=== PATIENT | female | born 1945 | race Caucasian/White ===

== ENCOUNTER 2016-04-21 15:53 | Outpatient (CLI) | payer MEDICARE, OTHER ==
[2016-04-21 16:24] LABS: #Basophils 0.1 thou/uL (0.0-0.2); #Eosinphils 0.2 thou/uL (0.0-0.7); #Monocytes 0.6 thou/uL (0.11-0.59); #Neutrophils 4.7 thou/uL (1.40-6.50); %Eosinophils 1.9 % (0.0-10.0); %Monocytes 6.5 % (0.0-10.0); Hematocrit 47.6 % (36.0-47.0); Mean Platelet Volume 8.4 fL (7.4-10.4); Red Blood Cell (RBC) Count 4.75 mill/uL (4.20-5.40); White Blood Cell (WBC) Count 8.5 thou/uL (4.8-10.8)
[2016-04-21 16:36] LABS: Anion Gap 17 mmol/L (10-20); BUN (Urea Nitrogen) 20 mg/dL (9.8-20.1); Calc. Creatinine Clearance 0 mL/min (70-130); Calcium 10.5 mg/dL (7.8-10.44); Carbon Dioxide 26 mmol/L (23-31); Chloride 106 mmol/L (98-107); Estimated GFR-MDRD 50
== END 2016-04-21 15:54 | disposition home or self-care (01) ==
LOC: HPCALD 15:53
PROVIDERS: ATTEND Family Medicine
DX: R06.2 Wheezing (principal)
CPT/HCPCS: 36415; 80048; 83880; 84443; 85025

== ENCOUNTER 2016-04-21 16:09 | Outpatient (CLI) | payer MEDICARE, OTHER ==
--- NOTE | 2016-04-21 18:27 | RAD ---
CHEST TWO VIEWS: Date: 04-21-16 Comparison: 10-24-13 FINDINGS: Mild cardiomegaly is about the same as before. The lungs seem fully inflated and clear. Arterioscl erotic change is seen in the aorta. The trachea is midline. No gross spinal fractures are seen. D egenerative changes are present in the spine. IMPRESSION: Cardiomegaly and arteriosclerosis, but minimal change since 2013. POS: HOME
--- NOTE | 2016-04-21 18:28 | RAD ---
LEFT HIP TWO VIEWS: Date: 04-21-16 FINDINGS: Some minor degenerative changes are seen in the hip consisting of small osteophytes, but the hip prasanth nt space is not very narrow. No fracture was seen. The adjacent pubic ring appears intact. IMPRESSION: No acute findings. POS: HOME
== END 2016-04-21 16:10 | disposition home or self-care (01) ==
LOC: BURRAD 16:09
PROVIDERS: ATTEND Family Medicine
DX: M25.552 Pain in left hip (principal); R26.9 Unspecified abnormalities of gait and mobility
CPT/HCPCS: 36415; 71020; 80048; 83880; 84443; 85025

== ENCOUNTER 2016-05-20 10:42 | Outpatient (CLI) | payer MEDICARE, OTHER ==
[2016-05-20 11:23] LABS: Methadone Not Detected (NotDetected); Methamphetamine Not Detected (NotDetected)
== END 2016-05-20 10:43 | disposition home or self-care (01) ==
LOC: HPCALD 10:42
PROVIDERS: ATTEND Family Medicine
DX: Z51.81 Encounter for therapeutic drug level monitoring (principal)
CPT/HCPCS: 80306

== ENCOUNTER 2016-10-20 23:00 | Emergency (ER) | payer MEDICARE, OTHER ==
[2016-10-20 23:38] LABS: #Basophils 0.1 thou/uL (0.0-0.2); #Eosinphils 0.2 thou/uL (0.0-0.7); #Lymphocytes 2.5 thou/uL (1.20-3.40); #Monocytes 0.7 thou/uL (0.11-0.59); #Neutrophils 6.8 thou/uL (1.40-6.50); %Basophils 0.9 % (0.0-1.0); %Eosinophils 1.9 % (0.0-10.0); %Monocytes 6.5 % (0.0-10.0); %Neutrophils 66.7 % (42.0-75.0); Hemoglobin 14.6 g/dL (12.0-16.0); Mean Corpuscular HGB CONC 34.2 g/dL (32.0-36.0); Mean Corpuscular Volume 96.4 fl (81.0-99.0); Mean Platelet Volume 8.7 fL (7.4-10.4); Platelet Count 193 thou/uL (130-400); Red Blood Cell (RBC) Count 4.42 mill/uL (4.20-5.40); White Blood Cell (WBC) Count 10.2 thou/uL (4.8-10.8)
[2016-10-20 23:43] LABS: INR-International Normal Ratio 2.5; PTT 36.9 SEC (22.9-36.1); Prothrombin Time 27.6 SEC (12.0-14.7)
[2016-10-21 00:03] LABS: ALT (SGPT) 25 U/L (8-55); AST (SGOT) 27 U/L (5-34); Albumin 3.9 g/dL (3.4-4.8); Alkaline Phosphatase 47 U/L (40-150); Anion Gap 16 mmol/L (10-20); BUN (Urea Nitrogen) 23 mg/dL (9.8-20.1); Bilirubin, Total 0.5 mg/dL (0.2-1.2); Calc. Creatinine Clearance 0 mL/min (70-130); Calcium 9.6 mg/dL (7.8-10.44); Carbon Dioxide 24 mmol/L (23-31); Chloride 107 mmol/L (98-107); Estimated GFR-MDRD 49; Glucose 111 mg/dL (83-110); Potassium 4.2 mmol/L (3.5-5.1); Protein, Total 6.9 g/dL (6.0-8.3); Sodium 143 mmol/L (136-145)
[2016-10-21] MEDS ORDERED: HYDROcodone/Acetaminophen 10/325 mg Tablet ONE (00:16)
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
--- NOTE | 2016-10-21 08:19 | RAD ---
LEFT KNEE 4 VIEWS: Date: 10/21/16 Moderately severe osteoarthritis is present consisting of joint space narrowing and osteophytes. No fracture or joint effusion seen. The bones all appear intact. IMPRESSION: Arthritis, but no acute findings. POS: HOME
--- NOTE | 2016-10-21 08:24 | RAD ---
RIGHT HUMERUS 2 VIEWS: Date: 10/20/16 Some bony densities along the lateral aspect of the radial head are thought to be chronic instead of acute. While the lateral view is not optimal, there is no suggestion of joint effusion to make me t hink that this is an acute issue. If pain is present here, then dedicated elbow films could be neede d. IMPRESSION: Humerus intact. Radial head changes most likely old. POS: HOME
== END 2016-10-21 00:53 | disposition home or self-care (01) ==
LOC: BURERS 23:00
DX: S80.02XA Contusion of left knee, initial encounter (principal); S40.021A Contusion of right upper arm, initial encounter; S20.229A Contusion of unspecified back wall of thorax, initial encounter; I48.91 Unspecified atrial fibrillation; I10 Essential (primary) hypertension; E66.9 Obesity, unspecified; J44.9 Chronic obstructive pulmonary disease, unspecified; Z79.899 Other long term (current) drug therapy; W18.30XA Fall on same level, unspecified, initial encounter
CPT/HCPCS: 70450; 71250; 72125; 74177; 80053; 85025; 85610; 85730; 96374; J2270

== ENCOUNTER 2017-01-17 14:52 | Emergency (ER) | payer MEDICARE, OTHER ==
[2017-01-17 15:26] LABS: #Basophils 0.1 thou/uL (0.0-0.2); #Eosinphils 0.1 thou/uL (0.0-0.7); #Lymphocytes 2.4 thou/uL (1.20-3.40); #Monocytes 0.3 thou/uL (0.11-0.59); %Basophils 0.9 % (0.0-1.0); %Eosinophils 1.5 % (0.0-10.0); %Lymphocytes 26.8 % (21.0-51.0); %Monocytes 3.7 % (0.0-10.0); %Neutrophils 67.1 % (42.0-75.0); Mean Corpuscular HGB CONC 32.7 g/dL (32.0-36.0); Mean Corpuscular Hemoglobin 32.4 pg (27.0-31.0); Mean Platelet Volume 8.2 fL (7.4-10.4); Platelet Count 220 thou/uL (130-400); RBC Distribution Width 13.5 % (11.5-14.5); Red Blood Cell (RBC) Count 4.62 mill/uL (4.20-5.40)
[2017-01-17 15:33] LABS: INR-International Normal Ratio 1.7; Prothrombin Time 20.7 SEC (12.0-14.7)
[2017-01-17] MEDS ORDERED: Ondansetron ODT 4 MG TAB ONE (15:41)
[2017-01-17] MEDS ORDERED: HYDROcodone/Acetaminophen 10/325 mg Tablet ONE (15:41)
[2017-01-17 15:42] LABS: ALT (SGPT) 18 U/L (8-55); AST (SGOT) 19 U/L (5-34); Albumin 4.2 g/dL (3.4-4.8); Alkaline Phosphatase 54 U/L (40-150); Anion Gap 16 mmol/L (10-20); BUN (Urea Nitrogen) 20 mg/dL (9.8-20.1); Bilirubin, Total 0.8 mg/dL (0.2-1.2); Calc. Creatinine Clearance 0 mL/min (70-130); Calcium 9.7 mg/dL (7.8-10.44); Carbon Dioxide 24 mmol/L (23-31); Chloride 107 mmol/L (98-107); Estimated GFR-MDRD 44; Globulin 3.2 g/dL (2.4-3.5); Glucose 103 mg/dL (83-110); Potassium 4.1 mmol/L (3.5-5.1); Protein, Total 7.4 g/dL (6.0-8.3); Sodium 143 mmol/L (136-145)
[2017-01-17 15:44] LABS: CKMB 1.3 ng/mL (0-6.6); Troponin I Less than 0.010 ng/mL (< 0.028)
[2017-01-17] MEDS ORDERED: Morphine Sulfate 2 MG/ML SYRINGE ONE (16:34)
--- NOTE | 2017-01-17 23:26 | RAD ---
LEFT HIP TWO VIEWS: 01/17/2017 COMPARISON: 04/21/2016 FINDINGS: No fracture or area of bony destruction is seen. The hip joint space is normal in width. The artic ular surface of the femoral head is smooth. There are no significant arthritic changes for age. IMPRESSION: No acute findings. No change since earlier this year. POS: HOME
== END 2017-01-17 16:39 | disposition short-term general hospital (02) ==
LOC: BURERS 14:52
DX: M79.652 Pain in left thigh (principal); I48.91 Unspecified atrial fibrillation; M10.9 Gout, unspecified; G47.30 Sleep apnea, unspecified; E78.5 Hyperlipidemia, unspecified; I10 Essential (primary) hypertension; E66.9 Obesity, unspecified; J44.9 Chronic obstructive pulmonary disease, unspecified; Z86.711 Personal history of pulmonary embolism; Z79.01 Long term (current) use of anticoagulants; Z79.899 Other long term (current) drug therapy
CPT/HCPCS: 80053; 82553; 84484; 85025; 85610; 93005; 96374; J2270; Q0162

== ENCOUNTER 2017-01-20 16:45 | Outpatient (CLI) | payer MEDICARE, MEDICAID ==
--- NOTE | 2017-01-20 22:30 | RAD ---
LEFT KNEE FOUR VIEWS: 01/20/17 Comparison is made with a 10/21/16 study. The findings are similar in that there is some mild joint space narrowing with some cartilaginous ca lcifications apparent in the joint. On at least one of the views, I would wonder if there is some lo ose bodies in the joint. MRI would be more accurate at showing this. There are no joint effusions. N o fracture was seen. IMPRESSION: Degenerative changes with cartilaginous calcifications. There might be a few loose bodies as well, s een better today than before. POS: HOME
== END 2017-01-20 16:46 | disposition home or self-care (01) ==
LOC: BURRAD 16:45
PROVIDERS: ATTEND Family Medicine
DX: M25.562 Pain in left knee (principal)

== ENCOUNTER 2017-03-17 13:39 | Inpatient (IN) | payer MEDICARE, OTHER ==
[2017-03-17] MEDS ORDERED: Ondansetron HCl/PF 4 MG/2 ML Vial ONE ×2 (13:46→14:15)
[2017-03-17] MEDS ORDERED: Famotidine In NaCl 20 mg/50 ml Premix Bag ONE (13:48)
[2017-03-17] MEDS ORDERED: cefTRIAXone\\ROCEPHIN 2 GM VIAL ONE (14:06)
[2017-03-17] MEDS ORDERED: Fentanyl 100 MCG/2 ML VIAL ONE ×2 (14:09→17:37)
[2017-03-17 14:11] LABS: #Basophils 0.1 thou/uL (0.0-0.2); #Lymphocytes 2.2 thou/uL (1.20-3.40); #Monocytes 0.3 thou/uL (0.11-0.59); #Neutrophils 15.5 thou/uL (1.40-6.50); %Basophils 0.5 % (0.0-1.0); %Eosinophils 0.2 % (0.0-10.0); %Monocytes 1.5 % (0.0-10.0); %Neutrophils 85.7 % (42.0-75.0); Hemoglobin 14.4 g/dL (12.0-16.0); Mean Corpuscular HGB CONC 32.7 g/dL (32.0-36.0); Mean Corpuscular Hemoglobin 32.2 pg (27.0-31.0); Mean Corpuscular Volume 98.6 fl (81.0-99.0); Mean Platelet Volume 8.2 fL (7.4-10.4); Platelet Count 194 thou/uL (130-400); Red Blood Cell (RBC) Count 4.48 mill/uL (4.20-5.40); White Blood Cell (WBC) Count 18.1 thou/uL (4.8-10.8)
[2017-03-17 14:12] LABS: ALT (SGPT) 18 U/L (8-55); AST (SGOT) 20 U/L (5-34); Albumin 4.1 g/dL (3.4-4.8); Alkaline Phosphatase 51 U/L (40-150); Anion Gap 16 mmol/L (10-20); BUN (Urea Nitrogen) 21 mg/dL (9.8-20.1); Bilirubin, Total 0.8 mg/dL (0.2-1.2); Calc. Creatinine Clearance 0 mL/min (70-130); Calcium 9.9 mg/dL (7.8-10.44); Carbon Dioxide 22 mmol/L (23-31); Chloride 108 mmol/L (98-107); Estimated GFR-MDRD 46; Globulin 3.3 g/dL (2.4-3.5); Glucose 130 mg/dL (83-110); Lipase 15 U/L (8-78); Potassium 4.2 mmol/L (3.5-5.1); Protein, Total 7.4 g/dL (6.0-8.3); Sodium 142 mmol/L (136-145)
[2017-03-17 14:31] LABS: Bilirubin Negative (Negative); Blood, Urine Small (Negative); Clarity Cloudy (Clear); Glucose, Urine (Dipstick) Negative (Negative); Leukocyte Small (Negative); Nitrite Negative (Negative); Protein, Urine (Dipstick) Negative (Neg-Trace); Urobilinogen 0.2 mg/dL (0.2-1.0); pH, Urine 5.5 (5.0-9.0)
[2017-03-17 14:36] LABS: Squamous Epithelial 0-3 HPF (0-3); WBC/HPF 21-50 HPF (0-3)
[2017-03-17 14:37] LABS: Bacteria/HPF 2+ HPF (None Seen)
[2017-03-17] MEDS ORDERED: Ketorolac Tromethamine 30 MG/ML VIAL ONE (14:43)
[2017-03-17 16:19] VITALS: BMI 38.4
[2017-03-17] MEDS ORDERED: Fentanyl 100 MCG/2 ML VIAL SLOW IVP PRN ×2 (16:30)
[2017-03-17] MEDS ORDERED: Sodium Chloride 0.9% 10 ML ONE (17:40)
[2017-03-17] MEDS ORDERED: HYDROcodone/Acetaminophen 5/325 mg Tablet PO PRN (17:42)
[2017-03-17] MEDS ORDERED: Ondansetron ODT 4 MG TAB SL PRN (17:42)
[2017-03-17] MEDS ORDERED: Ondansetron HCl/PF 4 MG/2 ML Vial IVP PRN (17:42)
[2017-03-17] MEDS ORDERED: HYDROcodone/Acetaminophen 10/325 mg Tablet PO PRN (17:53)
[2017-03-17] MEDS ORDERED: PROVENTIL INHALER 6.7 G (200 INHALATIONS) INH PRN (17:53)
[2017-03-17] MEDS: Acetaminophen 325 MG TAB PO PRN (17:55)
[2017-03-17] MEDS ORDERED: Warfarin Sodium 2.5 MG TAB PO SCH (18:00)
[2017-03-17] MEDS ORDERED: Warfarin Sodium 5 MG TAB PO SCH (18:00)
[2017-03-17 18:43] LABS: INR-International Normal Ratio 2.6; Prothrombin Time 28.8 SEC (12.0-14.7)
[2017-03-17] MEDS: HYDROcodone/Acetaminophen 5/325 mg Tablet PO PRN (21:26)
[2017-03-17] MEDS: tiZANidine HCl 4 MG TAB PO PRN (21:27)
[2017-03-17] MEDS: Metoprolol Tartrate 25 MG TAB PO SCH (21:27)
[2017-03-17] MEDS: Simvastatin 40 MG TAB PO SCH (21:27)
[2017-03-17] MEDS: Famotidine 20 MG TAB PO SCH (21:28)
[2017-03-17] MEDS: Dextrose 5 %-0.45 % NaCl 1,000 ML IV SCH (22:35)
--- NOTE | 2017-03-17 23:08 | HP ---
CHIEF COMPLAINT: Lower abdominal pain and vomiting. HISTORY OF PRESENT ILLNESS: Mrs. Veloz is a 71-year-old female who reports acute onset of constipation this morning followed by urinary hesitancy followed by lower abdominal pain. Subsequently, she developed fever and worsening pain throughout the course of the day and presented for emergency room evaluation. She reports several episodes of vomiting progressing to dry heaves. Denies that this was bilious or bloody. She reports some dysuria this morning with pain radiating up to the bilateral flanks. No gross hematuria was noted. In the emergency room, the patient was febrile to greater than 101 with 18,000 white count and urinalysis suspicious for urinary tract infection. Therefore, we have admitted her for further treatment. PAST MEDICAL HISTORY: 1. Vitamin D deficiency. 2. Obstructive sleep apnea, controlled with CPAP. 3. History of deep venous thrombosis and pulmonary embolism on chronic anticoagulation. 4. B12 deficiency. 5. Gout. 6. Gastroesophageal reflux disease. 7. Cervical disk disease. 8. Hyperlipidemia. 9. Hypothyroidism. 10. Hypertension. 11. Allergic rhinitis. 12. Chronic low back pain. 13. Chronic lower extremity edema. 14. Venous insufficiency. 15. Frequent falls. 16. Chronic pain syndrome. 17. Depression with anxiety. 18. Aortic valve calcifications. 19. Osteoarthritis, bilateral knees. 20. History of lumbar compression fracture. 21. Hard of hearing. PAST SURGICAL HISTORY: 1. Hysterectomy. 2. Multiple surgeries to low back involving L4-L5. 3. Left hemithyroidectomy with isthmusectomy, 03/17/2003. 4. Parathyroidectomy. 5. Ovarian cyst. ALLERGIES: CIPRO, TETRACYCLINE, CONTRAST, XARELTO. MEDICATIONS: 1. Metoprolol 50 mg b.i.d. 2. Ranitidine 300 mg p.o. at bedtime. 3. Simvastatin 40 mg p.o. daily. 4. Levothyroxine 50 mcg p.o. daily. 5. Ondansetron HCL 8 mg 1 q.8 h. p.r.n. nausea. 6. Stool softener 240 mg 1 capsule as needed once a day. 7. Ibuprofen 800 mg 1 p.o. t.i.d. with food or milk as needed. 8. Tramadol/acetaminophen 37.5/325 one to two p.o. q.4 hours p.r.n. 9. Warfarin per [facility] for goal INR 2-3, 5 mg tablet as directed. 10. Potassium 10 mEq twice a day. 11. Allopurinol 300 mg half tablet daily. 12. Multivitamin 1 daily. 13. Albuterol HFA 2 puffs q.4 hours p.r.n. wheezing. 14. Furosemide 40 mg daily. 15. Mometasone 2 sprays each nostril daily. 16. Calcium plus D 600/200 one p.o. daily. 17. Vitamin D3 of 2000 units daily. 18. Cetirizine 10 mg p.o. daily. 19. Hydrocodone 10/325 one p.o. q.6 h. p.r.n. pain. 20. Tizanidine 4 mg p.o. at bedtime p.r.n. FAMILY HISTORY: Noncontributory. SOCIAL HISTORY: The patient is , but she and her ex- still live together. No smoking, alcohol, or illicit drug use. REVIEW OF SYSTEMS: General: Positive fever, positive chills, positive fatigue, positive weakness, positive chronic pain. HEENT: Chronic postnasal drip. Denies sore throat, ear pain, sneezing or itchy watery eyes. Respiratory: Denies cough, hemoptysis, shortness of breath, wheezing. Cardiovascular: Denies chest pain, palpitations, orthopnea, PND. Genitourinary: Positive hesitancy, positive dysuria. No gross hematuria. Positive for frequency. Lymphatic: Increased lower extremity edema today. History of venous insufficiency and DVTs. Hematologic: The patient is coagulated. She was supposed to have her INR checked today, so she does not know what it is currently. Denies bleeding. Gastrointestinal: Positive vomiting as per above. No diarrhea. Positive constipation. No melena or hematochezia. Neurologic: Denies focal weakness, slurred speech, vision changes. PHYSICAL EXAMINATION: VITAL SIGNS: Temperature 101.2, heart rate 111, respirations 20, O2 sat 95% on room air, blood pressure 130/60. GENERAL: Well-developed, obese female in no acute distress. Alert and oriented x3. HEENT: Normocephalic, atraumatic. Pupils equal, round, and reactive to light and accommodation. Extraocular muscles intact. Nares are patent without discharge. Tongue protrudes in the midline. OP is clear. NECK: Supple, without lymphadenopathy, thyromegaly, JVD or bruit. HEART: Slightly tachycardic, regular rhythm. Normal S1, S2. A 2/6 systolic ejection murmur best heard at right upper sternal border. No radiation. LUNGS: Clear to auscultation bilaterally. No crackles or wheezes. Good air entry. No increased work of breathing. ABDOMEN: Positive bowel sounds in all four quadrants. Soft, tenderness to palpation in the suprapubic and bilateral lower quadrant as well as bilateral CVA tenderness. EXTREMITIES: No cyanosis or clubbing. A 1 mm pitting edema pretibially to the knees. NEUROLOGICAL: Cranial nerves II-XII grossly intact. No focal deficits. LABORATORY DATA: White count 18.1 with 85.7% neutrophils, 12% lymphocytes, hemoglobin 14.4, hematocrit 44.1, platelets 194. Sodium 142, potassium 4.2, chloride 108, bicarb 22, BUN 21, creatinine 1.16, glucose 130, lactic acid 1.9, calcium 9.9, normal LFTs, lipase 15, Urinalysis significant for small blood, small leukocyte esterase, 7-10 RBCs, 21-50 WBC, 2+ bacteria, 0-3 squamous epithelial cells. Urine and blood cultures are pending. ASSESSMENT AND PLAN: 1. Pyelonephritis. The patient was given 2 grams Rocephin in the emergency department. We will continue this every 24 hours. We will follow up urine culture. We will hydrate and treat symptomatically for pain. We will follow blood cultures. We will repeat her CBC in the a.m. 2. Fever. We will rule out influenza due to season. 3. Chronic pain. The patient will be continued on her chronic regimen. 4. Hypertension. The patient's blood pressure will be monitored in house and will continue her medication. 5. Gastroesophageal reflux disease. The patient's home regimen will be continued. 6. Hyperlipidemia. The patient's home regimen will be continued and heart healthy diet. 7. Hypothyroidism. We will continue her levothyroxine. 8. Constipation. She will be continued on her stool softener. 9. Vomiting. We will give her antiemetics p.r.n. 10. History of deep venous thrombosis/pulmonary embolus. We will check PT/INR daily and adjust her warfarin accordingly. Goal INR between 2-3. 11. Gout. The patient will be continued on her allopurinol. 12. Lower extremity edema. The patient will be continued on her Lasix and potassium. 13. Allergic rhinitis. The patient will be continued on her home regimen. 14. Vitamin D deficiency. Patient will be continued on her vitamin D. 15. Vitamin B12 deficiency. Patient will be continued on her multivitamin. 16. Osteoarthritis/lumbar/cervical disk disease. The patient will be continued on her tizanidine at bedtime as well as her other chronic medications. 17. Prophylaxis. The patient is already on anticoagulation. We will follow anticoagulation protocol. Her ranitidine will be continued for stress ulcer prophylaxis. CODE STATUS: FULL CODE. MTDD
[2017-03-18] MEDS: Dextrose 5 %-0.45 % NaCl 1,000 ML IV SCH ×3 (05:03→14:05)
[2017-03-18] MEDS: HYDROcodone/Acetaminophen 5/325 mg Tablet PO PRN (05:04)
[2017-03-18 05:20] LABS: INR-International Normal Ratio 2.6; Prothrombin Time 29.2 SEC (12.0-14.7)
[2017-03-18 05:28] LABS: Anion Gap 12 mmol/L (10-20)
[2017-03-18 06:56] LABS: Band 15 % (5-11); Eosinophils 1 % (0-10); Hemoglobin 12.4 g/dL (12.0-16.0); Lymphocytes 8 % (21-51); MDiff Complete? YES; Mean Corpuscular HGB CONC 32.8 g/dL (32.0-36.0); Mean Corpuscular Hemoglobin 32.1 pg (27.0-31.0); Mean Corpuscular Volume 97.9 fl (81.0-99.0); Mean Platelet Volume 8.9 fL (7.4-10.4); Monocytes 5 % (0-10); Neutrophil 71 % (42-75); PLT Morphology Comment Appears Adequate; Platelet Count 148 thou/uL (130-400); RBC Distribution Width 13.7 % (11.5-14.5); RBC Morphology Normal; Red Blood Cell (RBC) Count 3.84 mill/uL (4.20-5.40); White Blood Cell (WBC) Count 21.7 thou/uL (4.8-10.8)
[2017-03-18 08:44] LABS: BUN (Urea Nitrogen) 26 mg/dL (9.8-20.1); Calc. Creatinine Clearance 40 mL/min (70-130); Calcium 8.5 mg/dL (7.8-10.44); Carbon Dioxide 22 mmol/L (23-31); Chloride 109 mmol/L (98-107); Estimated GFR-MDRD 23; Glucose 100 mg/dL (83-110); Potassium 4.4 mmol/L (3.5-5.1); Sodium 139 mmol/L (136-145)
[2017-03-18] MEDS: Allopurinol 100 MG TAB PO SCH (10:06)
[2017-03-18] MEDS: Cholecalciferol (Vitamin D3) 400 UNITS TAB PO SCH (10:07)
[2017-03-18] MEDS: Calcium Carbonate + Vit D 1 TAB PO SCH (10:07)
[2017-03-18] MEDS: Fluticasone Propionate Nasal Spray 16 gm Bottle NASAL SCH (10:08)
[2017-03-18] MEDS: Levothyroxine Sodium 50 MCG TAB PO SCH (10:10)
[2017-03-18] MEDS: Acetaminophen 325 MG TAB PO PRN ×2 (10:10→15:47)
[2017-03-18] MEDS: Furosemide 40 MG TAB PO SCH (10:10)
[2017-03-18] MEDS: Metoprolol Tartrate 25 MG TAB PO SCH ×3 (10:11→21:29)
[2017-03-18] MEDS: Multivit, Therapeutic 1 TAB PO SCH (10:11)
[2017-03-18] MEDS ORDERED: Metoprolol Tartrate 25 MG TAB PO SCH ×2 (10:22→10:30)
[2017-03-18] MEDS ORDERED: Warfarin Sodium 2.5 MG TAB PO SCH (11:00)
[2017-03-18] MEDS ORDERED: Warfarin Sodium 5 MG TAB PO SCH (11:00)
[2017-03-18] MEDS ORDERED: Sterile Water 20 ML ONE (11:01)
[2017-03-18] MEDS: Meropenem 1 GM in Sodium Chloride 0.9% 100 ML IVPB SCH ×2 (11:40→18:24)
[2017-03-18] MEDS ORDERED: cefTRIAXone\\ROCEPHIN 2 GM in Sodium Chloride 0.9% 100 ML IVPB SCH (14:00)
[2017-03-18] MEDS ORDERED: cefTRIAXone\\ROCEPHIN 1 GM in Sodium Chloride 0.9% 100 ML IVPB SCH (14:00)
[2017-03-18] MEDS: Warfarin Sodium 2.5 MG TAB PO SCH (17:01)
[2017-03-18] MEDS: Sterile Water 20 ML ONE (18:23)
[2017-03-18] MEDS: Famotidine 20 MG TAB PO SCH (21:29)
[2017-03-18] MEDS: Simvastatin 40 MG TAB PO SCH (21:29)
[2017-03-18] MEDS: tiZANidine HCl 4 MG TAB PO PRN (21:30)
--- NOTE | 2017-03-18 21:53 | ULT ---
BILATERAL RENAL ULTRASOUND 03/18/17 Ultrasonography of the kidneys was performed for evaluation of pyelonephritis. No prior exams were av ailable for comparison. The right kidney measured 10.8 x 5.8 x 5.8 cm. No mass or hydronephrosis was seen. No abnormalities o f the renal cortex were seen. The left kidney measures 12.1 x 6.7 x 5.6 cm. No mass or hydronephrosis was seen. This kidney was see n rather poorly due to overlying bowel gas, so small lesions would be easily missed. The urinary bladder was essentially empty, so is not well evaluated. IMPRESSION: No acute renal issues seen. POS: HOME
[2017-03-19] MEDS: Dextrose 5 %-0.45 % NaCl 1,000 ML IV SCH ×3 (00:13→09:27)
[2017-03-19] MEDS ORDERED: Sterile Water 20 ML ONE (02:49)
[2017-03-19] MEDS: Meropenem 1 GM in Sodium Chloride 0.9% 100 ML IVPB SCH (02:56)
[2017-03-19 05:21] LABS: #Basophils 0.1 thou/uL (0.0-0.2); #Eosinphils 0.2 thou/uL (0.0-0.7); #Lymphocytes 1.3 thou/uL (1.20-3.40); #Monocytes 0.4 thou/uL (0.11-0.59); #Neutrophils 10.2 thou/uL (1.40-6.50); %Basophils 0.6 % (0.0-1.0); %Eosinophils 1.8 % (0.0-10.0); %Lymphocytes 10.7 % (21.0-51.0); %Monocytes 3.3 % (0.0-10.0); %Neutrophils 83.6 % (42.0-75.0); Hemoglobin 11.6 g/dL (12.0-16.0); Mean Corpuscular Hemoglobin 32.7 pg (27.0-31.0); Mean Corpuscular Volume 96.2 fl (81.0-99.0); Mean Platelet Volume 8.5 fL (7.4-10.4); Platelet Count 125 thou/uL (130-400); RBC Distribution Width 13.8 % (11.5-14.5); Red Blood Cell (RBC) Count 3.55 mill/uL (4.20-5.40); White Blood Cell (WBC) Count 12.2 thou/uL (4.8-10.8)
[2017-03-19 05:29] LABS: Anion Gap 12 mmol/L (10-20); BUN (Urea Nitrogen) 35 mg/dL (9.8-20.1); Calc. Creatinine Clearance 35 mL/min (70-130); Calcium 8.4 mg/dL (7.8-10.44); Carbon Dioxide 21 mmol/L (23-31); Chloride 107 mmol/L (98-107); Estimated GFR-MDRD 19; Glucose 99 mg/dL (83-110); Potassium 4.1 mmol/L (3.5-5.1); Sodium 136 mmol/L (136-145)
[2017-03-19] MEDS: Fluticasone Propionate Nasal Spray 16 gm Bottle NASAL SCH (09:28)
[2017-03-19] MEDS: Cholecalciferol (Vitamin D3) 400 UNITS TAB PO SCH (09:29)
[2017-03-19] MEDS: Calcium Carbonate + Vit D 1 TAB PO SCH (09:31)
[2017-03-19] MEDS: Furosemide 40 MG TAB PO SCH (09:31)
[2017-03-19] MEDS: Metoprolol Tartrate 25 MG TAB PO SCH ×2 (09:31→20:15)
[2017-03-19] MEDS: Multivit, Therapeutic 1 TAB PO SCH (09:31)
[2017-03-19] MEDS: Levothyroxine Sodium 50 MCG TAB PO SCH (09:31)
[2017-03-19] MEDS: Allopurinol 100 MG TAB PO SCH (09:32)
[2017-03-19 11:02] LABS: INR-International Normal Ratio 2.2; Prothrombin Time 25.2 SEC (12.0-14.7)
[2017-03-19] MEDS: Meropenem 1 GM in Sterile Water 20 ML SLOW IVP SCH ×2 (11:45→17:21)
[2017-03-19] MEDS: Sterile Water 20 ML ONE ×2 (11:47→17:20)
[2017-03-19] MEDS: Acetaminophen 325 MG TAB PO PRN ×2 (12:00→23:54)
[2017-03-19] MEDS ORDERED: Furosemide 40 MG/4 ML VIAL SLOW IVP SCH (12:00)
--- NOTE | 2017-03-19 15:48 | RAD ---
CHEST TWO VIEWS 03/19/17 Comparison is made with the 04/21/16 study. Mild cardiomegaly is about the same as before. There are no congestive changes or pleural effusions. The overlying soft tissues obscure some of the lower lobe detail. No major lobar consolidation is see n. The lungs are slightly hyperexpanded but there are no effusions. Faint calcification is seen in th e aortic arch. Degenerative changes are present in the spine. The trachea is midline. IMPRESSION: Mild cardiomegaly with little change since April. POS: HOME
[2017-03-19] MEDS: Warfarin Sodium 2.5 MG TAB PO SCH (16:35)
[2017-03-19] MEDS: Simvastatin 40 MG TAB PO SCH (20:15)
[2017-03-20] MEDS: Meropenem 1 GM in Sterile Water 20 ML SLOW IVP SCH ×2 (03:00→11:32)
[2017-03-20 05:25] LABS: #Basophils 0.1 thou/uL (0.0-0.2); #Eosinphils 0.3 thou/uL (0.0-0.7); #Lymphocytes 2.3 thou/uL (1.20-3.40); #Monocytes 0.9 thou/uL (0.11-0.59); #Neutrophils 6.9 thou/uL (1.40-6.50); %Basophils 1.1 % (0.0-1.0); %Eosinophils 2.7 % (0.0-10.0); %Monocytes 8.4 % (0.0-10.0); %Neutrophils 65.8 % (42.0-75.0); Hemoglobin 11.9 g/dL (12.0-16.0); Mean Corpuscular HGB CONC 33.9 g/dL (32.0-36.0); Mean Corpuscular Hemoglobin 32.7 pg (27.0-31.0); Mean Corpuscular Volume 96.5 fl (81.0-99.0); Mean Platelet Volume 8.5 fL (7.4-10.4); Platelet Count 142 thou/uL (130-400); RBC Distribution Width 13.6 % (11.5-14.5); Red Blood Cell (RBC) Count 3.64 mill/uL (4.20-5.40); White Blood Cell (WBC) Count 10.4 thou/uL (4.8-10.8)
[2017-03-20 05:29] LABS: INR-International Normal Ratio 1.7; Prothrombin Time 20.6 SEC (12.0-14.7)
[2017-03-20 05:34] LABS: Anion Gap 14 mmol/L (10-20); BUN (Urea Nitrogen) 37 mg/dL (9.8-20.1); Calc. Creatinine Clearance 47 mL/min (70-130); Calcium 8.8 mg/dL (7.8-10.44); Carbon Dioxide 23 mmol/L (23-31); Chloride 108 mmol/L (98-107); Estimated GFR-MDRD 27; Glucose 91 mg/dL (83-110); Sodium 141 mmol/L (136-145)
[2017-03-20] MEDS ORDERED: Furosemide 20 MG/2 ML VIAL SLOW IVP SCH (08:30)
[2017-03-20] MEDS: Fluticasone Propionate Nasal Spray 16 gm Bottle NASAL SCH (08:44)
[2017-03-20] MEDS: Cholecalciferol (Vitamin D3) 400 UNITS TAB PO SCH (08:45)
[2017-03-20] MEDS: Calcium Carbonate + Vit D 1 TAB PO SCH (08:47)
[2017-03-20] MEDS: Multivit, Therapeutic 1 TAB PO SCH (08:47)
[2017-03-20] MEDS: Allopurinol 100 MG TAB PO SCH (08:48)
[2017-03-20] MEDS: Levothyroxine Sodium 50 MCG TAB PO SCH (08:50)
[2017-03-20] MEDS: Metoprolol Tartrate 25 MG TAB PO SCH (08:50)
[2017-03-20] MEDS: Sterile Water 20 ML ONE (11:33)
[2017-03-20] MEDS ORDERED: Warfarin Sodium 5 MG TAB PO SCH (17:00)
[2017-03-20 17:55] VITALS: BP 157/73; TEMP 98.9
--- NOTE | 2017-03-21 01:02 | DIS ---
DATE OF ADMISSION: 03/17/2017 DATE OF DISCHARGE: 03/20/2017 ADMISSION DIAGNOSES: 1. Pyelonephritis. 2. Acute kidney injury. 3. History of deep venous thrombosis/pulmonary embolism on chronic anticoagulation. DISCHARGE DIAGNOSES: 1. Pyelonephritis. 2. Acute kidney injury. 3. History of deep venous thrombosis/pulmonary embolism on chronic anticoagulation. 4. Fluid overload secondary to IV fluid resuscitation. ATTENDING PHYSICIAN: Dr. Trina Rincon. PROCEDURES: 1. Renal ultrasound performed on 03/18/2017 showing no acute renal issues. No mass or hydronephrosis. 2. Chest x-ray from 03/19/2017 showing mild cardiomegaly with little change since April. No congestive changes or pleural effusions. No major lobar consolidation seen. Hyperexpansion. 3. CBC on the date of admission was 18,100 increased to 21,700 on the date following admission and decreased to 10,400 on the date of discharge. 4. INR monitored throughout hospitalization ranging from 1.7 to 2.6 with warfarin managed by Pharmacy. 5. Metabolic profile from the date of admission significant for BUN of 21, which increased to 37 on the date of discharge. 6. Creatinine of 1.16 on admission, which peaked at 2.49 on 03/19/2017 and subsequently improved to 1.85 on the date of discharge. 7. Lactic acid normal. 8. B-type natriuretic peptide on 03/19, 262, which was elevated and decreased on the date of discharge to 141.2. 9. Normal lipase. Urinalysis significant for small blood, small leukocyte esterase, 7-10 rbc's, 21-50 wbc, 2+ bacteria. No urine squamous epithelial cells noted. 10. Influenza A and B negative. 11. Blood culture x2 negative for growth at 48 hours. 12. Urine culture with E. coli that was pansensitive other than insensitive to nitrofurantoin. HISTORY AND PHYSICAL EXAMINATION: Please see dictated report from the date of admission. HOSPITAL COURSE: Ms. Veloz is a 71-year-old female who presented with urinary hesitancy, lower abdominal pain and fever. She ruled out for sepsis with normal lactic acid level. She was admitted for suspected pyelonephritis and initially placed on Rocephin. This was continued through her second hospital day. However, she had increased white count, worsening renal function and her urine culture preliminary result was not yet back. I suspect a resistant organism. I changed her antibiotics to meropenem. This was continued throughout the course of her hospitalization. Her urine culture subsequently showed E. coli that was pansensitive except insensitive to nitrofurantoin. Other oral agents are available for treatment. She will be discharged on a 10 day course of Keflex. We followed to make sure her blood cultures were negative at 48 hours. She also has been greater than 48 hours without fever and her white count has normalized. She is no longer having lower abdominal pain, urinary hesitancy, or dysuria. Her renal ultrasound was reassuring and ruled out obstruction and hydronephrosis. The patient presented with acute kidney injury that worsened with IV fluid administration. She was having persistent edema to the extremities and decreased urination suspicious for fluid overload. The IV fluids were then stopped. B-type natriuretic peptide was checked and was elevated. Her chest x- ray showed no gross congestive changes. She was given a dose of Lasix 40 mg IV x1 with good urine output in response. On the date of her discharge, her B- type natriuretic peptide has diminished to 141. She was given an additional 20 mg dose of IV Lasix today and had good urine output with over 1000 mL recorded during the day today of urine. Her edema is improved. She had some cough and chest tightness which improved with diuresis as well. She will resume her Lasix 40 mg orally daily as an outpatient. We will recheck her renal function at her followup visit, which will be in approximately 1 week; however, it has been reassuring that her creatinine is trending downward after treatment of fluid overload. Patient with a history of deep venous thrombosis/pulmonary embolism. Her warfarin was missed on the date of her ER presentation, but was resumed the following day and has been managed by Pharmacy. She has had no dose changes. We will repeat this in the outpatient setting with Coumadin clinic. Patient has been afebrile today and is feeling much improved and would like to go home this afternoon. Therefore, I am discharging her with follow up with me in approximately 7 days. Her antibiotics have been sent to the pharmacy for case picker this evening and she will take her first dose tonight. DISPOSITION: Discharge to home. CONDITION: Good. MEDICATIONS: 1. Diphenhydramine one p.o. q. day p.r.n. 2. Albuterol nebs 2.5 mg nebulized q.i.d. p.r.n. 3. Vitamin D 2000 units p.o. q. day. 4. Calcium/vitamin D3 one p.o. q. day. 5. Metoprolol 50 mg p.o. b.i.d. 6. Hydrocodone one p.o. q.6 hours p.r.n. pain. 7. Warfarin 2.5 mg on Thursday, Thursday, , Thursday, and Thursday and 5 mg all other days. 8. Zanaflex 4 mg p.o. at bedtime p.r.n. 9. Furosemide 40 mg p.o. q. day. 10. Multivitamin 1 p.o. q. day. 11. Nasonex 1 spray in each naris daily. 12. Albuterol sulfate, ProAir HFA 2 sprays q.4 hours p.r.n. 13. Allopurinol 150 mg p.o. q. day. 14. Simvastatin 40 mg p.o. at bedtime. 15. Levothyroxine 50 mcg p.o. q. day. 16. Ranitidine 300 mg p.o. at bedtime. 17. Keflex 500 mg p.o. t.i.d. x10 days. Follow up with Dr. Rincon in approximately 7 days. We will have a repeat BMP and a PT/INR performed at her clinic visit, if her PT/INR is not performed at Coumadin clinic prior to then. SHANELL
== END 2017-03-20 18:13 | disposition home or self-care (01) | DRG 690 ==
LOC: BURERS 13:39 → BURMED 15:05
PROVIDERS: ADMIT Family Medicine; ATTEND Family Medicine
DX: N12 Tubulo-interstitial nephritis, not specified as acute or chronic (principal); N17.9 Acute kidney failure, unspecified; E87.70 Fluid overload, unspecified; I48.2 Chronic atrial fibrillation; I10 Essential (primary) hypertension; N39.0 Urinary tract infection, site not specified; K59.00 Constipation, unspecified; E55.9 Vitamin D deficiency, unspecified; G47.33 Obstructive sleep apnea (adult) (pediatric); Z86.711 Personal history of pulmonary embolism; Z86.718 Personal history of other venous thrombosis and embolism; Z79.01 Long term (current) use of anticoagulants; E53.8 Deficiency of other specified B group vitamins; M10.9 Gout, unspecified; K21.9 Gastro-esophageal reflux disease without esophagitis; E78.5 Hyperlipidemia, unspecified; E03.9 Hypothyroidism, unspecified; J30.9 Allergic rhinitis, unspecified; I87.2 Venous insufficiency (chronic) (peripheral); Z91.81 History of falling; G89.4 Chronic pain syndrome; F41.8 Other specified anxiety disorders; M17.0 Bilateral primary osteoarthritis of knee; Z88.8 Allergy status to other drugs, medicaments and biological substances; Z88.1 Allergy status to other antibiotic agents; Z91.041 Radiographic dye allergy status; R60.0 Localized edema; M47.812 Spondylosis without myelopathy or radiculopathy, cervical region; M47.816 Spondylosis without myelopathy or radiculopathy, lumbar region; B96.20 Unspecified Escherichia coli [E. coli] as the cause of diseases classified elsewhere; E66.9 Obesity, unspecified; Z68.38 Body mass index [BMI] 38.0-38.9, adult; J42 Unspecified chronic bronchitis
CPT/HCPCS: 36415; 51701; 71020; 76770; 80048; 80053; 81003; 81015; 83605; 83690; 83880; 85025; 85610; 87040; 87077; 87086; 87186; 94760; 96361; 96365; 96367; 96375; A4216; J0696; J1885; J1940; J2185; J2405; J3010; J7050; J7620

== ENCOUNTER 2017-12-09 16:45 | Emergency (ER) | payer MEDICARE, MEDICAID ==
[2017-12-09] MEDS ORDERED: HYDROcodone/Acetaminophen 10/325 mg Tablet ONE (17:10)
--- NOTE | 2017-12-09 20:26 | RAD ---
RIGHT ANKLE THREE VIEWS: 12/09/17 No fracture, dislocation, or joint space abnormality was seen. There are numerous soft tissue calcifi cations in this patient as well as vascular calcifications. The malleoli appear intact. A small calca johanne spur was noted. IMPRESSION: No acute bony findings. POS: HOME
--- NOTE | 2017-12-09 21:29 | RAD ---
RIGHT FOOT THREE VIEWS: 12/09/17 Prominent hallux valgus is present along with hammertoe deformities. There is irregularity at the bas e of the proximal phalanx of the second toe. I cannot tell if this is a new injury or an old one. It easily could be old. Correlate with current clinical symptoms and history. The remainder of the foot appeared intact. A tiny calcaneal spur was noted. IMPRESSION: 1. Hallux valgus with hammertoe deformities. 2. Abnormal base of the proximal phalanx of the second toe. Old versus new trauma. Code T POS: HOME
== END 2017-12-09 17:54 | disposition home or self-care (01) ==
LOC: BURERS 16:45
DX: S93.401A Sprain of unspecified ligament of right ankle, initial encounter (principal); S93.601A Unspecified sprain of right foot, initial encounter; E78.5 Hyperlipidemia, unspecified; M10.9 Gout, unspecified; I48.91 Unspecified atrial fibrillation; E66.9 Obesity, unspecified; I10 Essential (primary) hypertension; J44.9 Chronic obstructive pulmonary disease, unspecified; Z79.01 Long term (current) use of anticoagulants; Z79.899 Other long term (current) drug therapy; X50.1XXA Overexertion from prolonged static or awkward postures, initial encounter

== ENCOUNTER 2018-01-04 11:45 | Outpatient (CLI) | payer MEDICARE, OTHER ==
--- NOTE | 2018-01-04 20:16 | RAD ---
RIGHT FOOT THREE VIEWS: 01/04/2018 COMPARISON: 12/09/2017 FINDINGS: Irregularity seen at the base of the proximal phalanx of the second toe seems smoother today than bef ore, suggesting this may have been a recent fracture that is healing. No new fractures or areas of n ew periosteal reaction are seen. Severe hallux valgus with bunion deformity is present, involving th e first metatarsal head. A small calcaneal spur is present, as well as plantar fascia calcification. IMPRESSION: 1. No acute findings or adverse interval change. 2. The proximal phalanx of the second toe is smoother in appearance, suggesting the abnormality seen last time was, in fact, acute trauma. POS: HOME
--- NOTE | 2018-01-04 20:17 | RAD ---
RIGHT ANKLE THREE VIEWS: 01/04/2018 COMPARISON: 12/09/2017 FINDINGS: There seems to be more soft tissue swelling around the ankle, both sides, today. No fractures are ap preciated. The articular surfaces remain smooth, and the joint space is normal in width. Numerous s oft tissue and arterial calcifications are evident. IMPRESSION: Increased swelling, but no bony change. POS: HOME
== END 2018-01-04 11:46 | disposition home or self-care (01) ==
LOC: BURRAD 11:45
PROVIDERS: ATTEND Family Medicine
DX: M25.571 Pain in right ankle and joints of right foot (principal); M25.471 Effusion, right ankle

== ENCOUNTER 2018-11-17 11:14 | Emergency (ER) | payer MEDICARE, OTHER ==
[2018-11-17 11:52] LABS: #Basophils 0.1 thou/uL (0.0-0.2); #Lymphocytes 1.5 thou/uL (1.20-3.40); #Monocytes 0.8 thou/uL (0.11-0.59); #Neutrophils 11.4 thou/uL (1.40-6.50); %Basophils 0.7 % (0.0-1.0); %Eosinophils 0.2 % (0.0-10.0); %Lymphocytes 10.7 % (21.0-51.0); %Monocytes 6.1 % (0.0-10.0); %Neutrophils 82.3 % (42.0-75.0); Hemoglobin 13.7 g/dL (12.0-16.0); Mean Corpuscular HGB CONC 30.9 g/dL (32.0-36.0); Mean Corpuscular Hemoglobin 30.2 pg (27.0-31.0); Mean Corpuscular Volume 97.5 fL (78.0-98.0); Mean Platelet Volume 8.8 fL (7.4-10.4); Platelet Count 199 thou/uL (130-400); Red Blood Cell (RBC) Count 4.54 mill/uL (4.20-5.40); White Blood Cell (WBC) Count 13.9 thou/uL (4.8-10.8)
[2018-11-17] MEDS ORDERED: Water For Injection,Sterile 20 ML ONE (11:54)
[2018-11-17 12:07] LABS: ALT (SGPT) 14 U/L (8-55); AST (SGOT) 17 U/L (5-34); Albumin 4.2 g/dL (3.4-4.8); Alkaline Phosphatase 48 U/L (40-150); Anion Gap 16 mmol/L (10-20); BUN (Urea Nitrogen) 14 mg/dL (9.8-20.1); Bilirubin, Total 1.1 mg/dL (0.2-1.2); CK (CPK) 74 U/L (29-168); Calc. Creatinine Clearance 0 mL/min (70-130); Calcium 9.9 mg/dL (7.8-10.44); Carbon Dioxide 23 mmol/L (23-31); Chloride 106 mmol/L (98-107); Estimated GFR-MDRD 65; Globulin 3.1 g/dL (2.4-3.5); Glucose 98 mg/dL (83-110); Protein, Total 7.3 g/dL (6.0-8.3); Sodium 141 mmol/L (136-145)
== END 2018-11-17 14:10 | disposition short-term general hospital (02) ==
LOC: BURERS 11:14
DX: S61.451A Open bite of right hand, initial encounter (principal); M10.9 Gout, unspecified; G47.30 Sleep apnea, unspecified; I48.91 Unspecified atrial fibrillation; E78.5 Hyperlipidemia, unspecified; I10 Essential (primary) hypertension; E66.9 Obesity, unspecified; Z86.711 Personal history of pulmonary embolism; J44.9 Chronic obstructive pulmonary disease, unspecified; Z79.899 Other long term (current) drug therapy; Z79.51 Long term (current) use of inhaled steroids; W54.0XXA Bitten by dog, initial encounter
CPT/HCPCS: 36415; 80053; 82550; 83605; 85025; 87040; 96365; 96366; J3370

== ENCOUNTER 2018-12-22 12:00 | Outpatient (CLI) | payer MEDICARE, OTHER ==
--- NOTE | 2018-12-22 17:17 | RAD ---
LEFT SHOULDER THREE VIEWS: 12/22/18 No fracture was visualized. There is no dislocation. The AC joint is not widened. There is probably s ome calcific tendonitis present as well as some calcification around the AC joint. IMPRESSION: Longstanding changes but no acute finding. POS: HOME
--- NOTE | 2018-12-22 17:20 | RAD ---
LEFT CLAVICLE TWO VIEWS: 12/22/18 No clavicular fracture was apparent. The AC joint is not widened but there is some bony density aroun d the joint. There also is a suggestion of a fritz of bone superolateral to the humeral head which ma y be calcific tendonitis. The scapula is seen incompletely. IMPRESSION: 1. No clavicular fracture. 2. Possible calcific tendonitis. Also degenerative change and calcification around the AC joint. POS: HOME
--- NOTE | 2018-12-22 17:22 | RAD ---
LEFT KNEE 12/22/18 AP, lateral and sunrise views are obtained. Degenerative changes are present in the joint with some m eniscal calcifications and joint space narrowing. Some small osteophytes are seen in the patellofemor al joint. No large joint effusion was seen. There is no sign of fracture or bony destruction. IMPRESSION: Arthritic changes along with meniscal calcifications as noted. 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 POS: HOME
== END 2018-12-22 12:01 | disposition home or self-care (01) ==
LOC: BURRAD 12:00
PROVIDERS: ATTEND Nurse Practitioner Family
DX: M25.512 Pain in left shoulder (principal); M25.562 Pain in left knee; M19.012 Primary osteoarthritis, left shoulder; M25.812 Other specified joint disorders, left shoulder; M17.12 Unilateral primary osteoarthritis, left knee; M25.862 Other specified joint disorders, left knee

== ENCOUNTER 2019-09-12 11:48 | Outpatient (CLI) | payer MEDICARE, OTHER ==
--- NOTE | 2019-09-12 16:24 | RAD ---
RIGHT HIP 2 VIEWS: DATE: 09/12/2019. FINDINGS: No fracture was appreciated. The bones all appeared intact. There is no dislocation. The joint spa ce is normal in width. A sclerotic area overlying the intratrochanteric region is probably a bone is land and is of no concern. There are minimal osteophytes around the joint. IMPRESSION: No acute traumatic finding. POS: HOME
== END 2019-09-12 11:49 | disposition home or self-care (01) ==
LOC: BURRAD 11:48
PROVIDERS: ATTEND Registered Nurse Community Health
DX: M25.551 Pain in right hip (principal)

== ENCOUNTER 2020-04-03 14:26 | Outpatient (CLI) | payer MEDICARE, OTHER ==
[2020-04-03 15:08] LABS: #Basophils 0.1 thou/uL (0.0-0.2); #Eosinphils 0.3 thou/uL (0.0-0.7); #Lymphocytes 2.9 thou/uL (1.20-3.40); #Monocytes 0.5 thou/uL (0.11-0.59); #Neutrophils 3.7 thou/uL (1.40-6.50); %Basophils 0.9 % (0.0-1.0); %Eosinophils 3.7 % (0.0-10.0); %Monocytes 6.5 % (0.0-10.0); %Neutrophils 49.9 % (42.0-75.0); Hemoglobin 13.7 g/dL (12.0-16.0); Mean Corpuscular HGB CONC 31.5 g/dL (32.0-36.0); Mean Corpuscular Volume 98.6 fL (78.0-98.0); Mean Platelet Volume 9.1 fL (7.4-10.4); Platelet Count 178 thou/uL (130-400); White Blood Cell (WBC) Count 7.5 thou/uL (4.8-10.8)
[2020-04-03 15:10] LABS: INR-International Normal Ratio 1.9; PTT 35.2 sec (22.9-36.1); Prothrombin Time 22.4 sec (12.0-14.7)
[2020-04-03 15:18] LABS: ALT (SGPT) 12 U/L (8-55); AST (SGOT) 16 U/L (5-34); Albumin 3.8 g/dL (3.4-4.8); Alkaline Phosphatase 45 U/L (40-110); Anion Gap 13 mmol/L (10-20); BUN (Urea Nitrogen) 17 mg/dL (9.8-20.1); Bilirubin, Total 0.4 mg/dL (0.2-1.2); Calc. Creatinine Clearance 0 mL/min (70-130); Calcium 8.8 mg/dL (7.8-10.44); Carbon Dioxide 26 mmol/L (23-31); Chloride 107 mmol/L (98-107); Globulin 2.6 g/dL (2.4-3.5); Glucose 92 mg/dL (83-110); Potassium 4.1 mmol/L (3.5-5.1); Protein, Total 6.4 g/dL (6.0-8.3)
[2020-04-03 15:38] LABS: Sodium 142 mmol/L (136-145)
--- NOTE | 2020-04-03 17:52 | RAD ---
CHEST TWO VIEWS: 04/03/20 Comparison is made with the 03/13 study. Heart is borderline in size but unchanged. There is no vascular congestion, edema, or pleural effusio n. No focal pulmonary infiltrate was seen. there may be some scarring in the left base. Faint calcifi cation is seen aortic arch. The lungs are slightly hyperexpanded. IMPRESSION: 1. Borderline heart size but no congestive findings. 2. Slightly hyperexpanded lungs, but clear. 3. Arteriosclerosis. POS: HOME
== END 2020-04-03 14:27 | disposition home or self-care (01) ==
LOC: BURRAD 14:26
PROVIDERS: ATTEND Registered Nurse Community Health
DX: Z01.818 Encounter for other preprocedural examination (principal); I70.0 Atherosclerosis of aorta; Z86.718 Personal history of other venous thrombosis and embolism
CPT/HCPCS: 36415; 71046; 80053; 85025; 85610; 85730; 93005; 93010

== ENCOUNTER 2020-06-13 17:15 | Emergency (ER) | payer MEDICARE, MEDICAID ==
[2020-06-13] MEDS ORDERED: Acetaminophen 500 MG TAB ONE (18:00)
== END 2020-06-13 18:08 | disposition home or self-care (01) ==
LOC: BURERS 17:15
DX: S62.644A Nondisplaced fracture of proximal phalanx of right ring finger, initial encounter for closed fracture (principal); S62.654A Nondisplaced fracture of middle phalanx of right ring finger, initial encounter for closed fracture; M10.9 Gout, unspecified; I10 Essential (primary) hypertension; E66.9 Obesity, unspecified; E78.5 Hyperlipidemia, unspecified; I48.91 Unspecified atrial fibrillation; Z79.51 Long term (current) use of inhaled steroids; Z79.899 Other long term (current) drug therapy; W01.0XXA Fall on same level from slipping, tripping and stumbling without subsequent striking against object, initial encounter

== ENCOUNTER 2021-08-28 20:08 | Emergency (ER) | payer OTHER ==
[2021-08-28] MEDS ORDERED: Lidocaine 1% w/Epinephrine 1:100K 20 ML VIAL ONE (20:17)
[2021-08-28 21:06] LABS: #Basophils 0.1 thou/uL (0.0-0.2); #Eosinphils 0.3 thou/uL (0.0-0.7); #Lymphocytes 2.6 thou/uL (1.20-3.40); #Monocytes 0.5 thou/uL (0.11-0.59); %Basophils 0.8 % (0.0-1.0); %Eosinophils 3.6 % (0.0-10.0); %Lymphocytes 30.4 % (21.0-51.0); %Monocytes 5.3 % (0.0-10.0); %Neutrophils 59.9 % (42.0-75.0); Hemoglobin 13.3 g/dL (12.0-16.0); Mean Corpuscular HGB CONC 33.1 g/dL (32.0-36.0); Mean Corpuscular Hemoglobin 31.9 pg (27.0-31.0); Mean Corpuscular Volume 96.3 fL (78.0-98.0); Platelet Count 192 thou/uL (130-400); RBC Distribution Width 13.7 % (11.5-14.5); Red Blood Cell (RBC) Count 4.18 mill/uL (4.20-5.40); White Blood Cell (WBC) Count 8.4 thou/uL (4.8-10.8)
[2021-08-28 21:11] LABS: INR-International Normal Ratio 1.8; Prothrombin Time 21.6 sec (12.0-14.7)
[2021-08-28 21:20] LABS: ALT (SGPT) 13 U/L (8-55); AST (SGOT) 19 U/L (5-34); Albumin 3.9 g/dL (3.4-4.8); Alkaline Phosphatase 53 U/L (40-110); Anion Gap 14 mmol/L (10-20); BUN (Urea Nitrogen) 19 mg/dL (9.8-20.1); Bilirubin, Total 0.4 mg/dL (0.2-1.2); Calc. Creatinine Clearance 0 mL/min (70-130); Calcium 9.1 mg/dL (7.8-10.44); Carbon Dioxide 24 mmol/L (23-31); Chloride 109 mmol/L (98-107); Globulin 2.9 g/dL (2.4-3.5); Glucose 104 mg/dL (83-110); Potassium 4.4 mmol/L (3.5-5.1); Protein, Total 6.8 g/dL (5.8-8.1); Sodium 143 mmol/L (136-145)
== END 2021-08-28 22:19 | disposition home or self-care (01) ==
LOC: BURERS 20:08
DX: S01.81XA Laceration without foreign body of other part of head, initial encounter (principal); I10 Essential (primary) hypertension; I48.91 Unspecified atrial fibrillation; J44.9 Chronic obstructive pulmonary disease, unspecified; E78.5 Hyperlipidemia, unspecified; M10.9 Gout, unspecified; W18.30XA Fall on same level, unspecified, initial encounter; W22.8XXA Striking against or struck by other objects, initial encounter
CPT/HCPCS: 12011; 36415; 70450; 70486; 80053; 85025; 85610

== ENCOUNTER 2021-11-13 12:27 | Outpatient (CLI) | payer MEDICARE, OTHER | END 2021-11-13 12:28 | disposition home or self-care (01) | LOC: BURRAD 12:27 | PROVIDERS: ATTEND Registered Nurse Community Health | DX: M25.561 Pain in right knee (principal); M25.551 Pain in right hip; M17.11 Unilateral primary osteoarthritis, right knee ==

== ENCOUNTER 2022-04-24 10:04 | Emergency (ER) | payer OTHER, MEDICARE | END 2022-04-24 11:33 | disposition home or self-care (01) | LOC: BURERS 10:04 | DX: S60.572A Other superficial bite of hand of left hand, initial encounter (principal); S00.03XA Contusion of scalp, initial encounter; I48.91 Unspecified atrial fibrillation; E78.5 Hyperlipidemia, unspecified; I10 Essential (primary) hypertension; J44.9 Chronic obstructive pulmonary disease, unspecified; Z79.899 Other long term (current) drug therapy; W54.0XXA Bitten by dog, initial encounter | CPT/HCPCS: 70450 ==

== ENCOUNTER 2022-04-24 14:02 | Emergency (ER) | payer OTHER, MEDICARE | END 2022-04-24 15:04 | disposition home or self-care (01) | LOC: BURERS 14:02 | DX: S60.221A Contusion of right hand, initial encounter (principal); I48.91 Unspecified atrial fibrillation; E78.5 Hyperlipidemia, unspecified; I10 Essential (primary) hypertension; J44.9 Chronic obstructive pulmonary disease, unspecified; Z79.899 Other long term (current) drug therapy; V49.40XA Driver injured in collision with unspecified motor vehicles in traffic accident, initial encounter; Y92.410 Unspecified street and highway as the place of occurrence of the external cause | CPT/HCPCS: 99284 ==

== ENCOUNTER 2022-04-30 09:21 | Emergency (ER) | payer MEDICARE, OTHER ==
[2022-04-30] MEDS ORDERED: Morphine 4 MG/ML VIAL ONE (11:21)
[2022-04-30] MEDS ORDERED: Ondansetron PF 4 MG/2 ML Vial ONE (11:22)
[2022-04-30 11:28] LABS: #Basophils 0.1 thou/uL (0.0-0.2); #Eosinphils 0.3 thou/uL (0.0-0.7); #Lymphocytes 2.4 thou/uL (1.20-3.40); #Monocytes 0.5 thou/uL (0.11-0.59); #Neutrophils 4.8 thou/uL (1.40-6.50); %Basophils 1.1 % (0.0-1.0); %Eosinophils 3.5 % (0.0-10.0); %Lymphocytes 29.3 % (21.0-51.0); %Monocytes 6.6 % (0.0-10.0); %Neutrophils 59.5 % (42.0-75.0); Hemoglobin 13.4 g/dL (12.0-16.0); Mean Corpuscular HGB CONC 33.4 g/dL (32.0-36.0); Mean Corpuscular Hemoglobin 32.3 pg (27.0-31.0); Mean Corpuscular Volume 96.9 fl (78.0-98.0); Mean Platelet Volume 9.5 fL (7.4-10.4); Platelet Count 207 10x3/uL (130-400); RBC Distribution Width 13.7 % (11.5-14.5); Red Blood Cell (RBC) Count 4.14 mill/uL (4.20-5.40); White Blood Cell (WBC) Count 8.1 10x3/uL (4.8-10.8)
[2022-04-30 11:41] LABS: ALT (SGPT) 15 U/L (8-55); AST (SGOT) 19 U/L (5-34); Albumin 3.9 g/dL (3.4-4.8); Alkaline Phosphatase 40 U/L (40-110); Anion Gap 13 mmol/L (10-20); BUN (Urea Nitrogen) 19 mg/dL (9.8-20.1); Bilirubin, Total 0.9 mg/dL (0.2-1.2); Calc. Creatinine Clearance 0 mL/min (70-130); Calcium 9.5 mg/dL (7.8-10.44); Carbon Dioxide 22 mmol/L (23-31); Chloride 109 mmol/L (98-107); Estimated GFR 63; Globulin 2.5 g/dL (2.4-3.5); Glucose 97 mg/dL (83-110); Potassium 4.2 mmol/L (3.5-5.1); Protein, Total 6.4 g/dL (5.8-8.1); Sodium 140 mmol/L (136-145)
== END 2022-04-30 13:10 | disposition home or self-care (01) ==
LOC: BURERS 09:21
DX: S40.012A Contusion of left shoulder, initial encounter (principal); S30.1XXA Contusion of abdominal wall, initial encounter; S60.222A Contusion of left hand, initial encounter; S60.221A Contusion of right hand, initial encounter; M79.10 Myalgia, unspecified site; M10.9 Gout, unspecified; G47.30 Sleep apnea, unspecified; E78.00 Pure hypercholesterolemia, unspecified; J42 Unspecified chronic bronchitis; I10 Essential (primary) hypertension; I48.91 Unspecified atrial fibrillation; V43.52XA Car driver injured in collision with other type car in traffic accident, initial encounter; W22.11XA Striking against or struck by driver side automobile airbag, initial encounter; Z86.711 Personal history of pulmonary embolism; Z79.01 Long term (current) use of anticoagulants; Z79.899 Other long term (current) drug therapy
CPT/HCPCS: 36415; 71260; 74177; 80053; 83605; 85025; 96374; 96375; J2270; J2405